=== PATIENT | female | born 1960 | race Caucasian/White ===

== ENCOUNTER 2017-04-20 11:00 | Day surgery (SDC) | payer OTHER ==
[2017-04-20] MEDS ORDERED: LIDOCAINE 1% 2 ML INJ ID PRN (11:13)
[2017-04-20] MEDS ORDERED: LR 1,000 ML IV ONE (11:13)
[2017-04-20] MEDS ORDERED: ceFAZolin 2 GM/SWFI 2 GM/20 ML SYR IVP ONE (11:32)
[2017-04-20 11:36] VITALS: PULSE 65; TEMP 97.7
[2017-04-20] MEDS ORDERED: BUPIVACAINE 0.5% 30 ML SDV ONE (12:20)
[2017-04-20] MEDS ORDERED: POLYMYXIN B SULFATE 500,000 UNIT/10 ML SYR IRR ONE (12:20)
[2017-04-20] MEDS ORDERED: BACITRACIN 50,000 UNITS/10 ML SYR IRR ONE (12:21)
--- NOTE | 2017-04-20 12:27 | PDHPUP ---
History & Physical Update H&P update statement: This history and physical update is based on an assessment of the patient which was completed after admission or registration (within 24 hours), but prior to the surgery/procedure. H&P update: H&P reviewed & patient examined, no change in patient's condition since H&P completed
[2017-04-20] MEDS ORDERED: PROPOFOL/EMULSION 500 MG/50 ML BOTTLE IV ONE (12:32)
[2017-04-20] MEDS ORDERED: fentaNYL 100 MCG/2 ML INJ ONE (12:32)
[2017-04-20] MEDS ORDERED: ALBUTEROL 3 ML DEYVIAL IH PRN (13:13)
[2017-04-20] MEDS ORDERED: NALOXONE HCL 0.4 MG/ML INJ IVP PRN (13:13)
[2017-04-20] MEDS ORDERED: DEXAMETHASONE 4 MG/ML VIAL IVP PRN (13:13)
[2017-04-20] MEDS ORDERED: fentaNYL 100 MCG/2 ML INJ IVP PRN (13:13)
[2017-04-20] MEDS ORDERED: PROMETHAZINE HCL 25 MG/ML INJ IVP PRN (13:13)
[2017-04-20] MEDS ORDERED: LR 500 ML IV PRN (13:13)
[2017-04-20] MEDS ORDERED: OXYCODONE/APAP 5/325 TAB PO PRN ×2 (13:13→13:52)
[2017-04-20] MEDS ORDERED: ONDANSETRON 4 MG/2 ML VIAL IVP PRN ×2 (13:13→13:52)
[2017-04-20] MEDS ORDERED: HYDROCODONE/APAP 5/325 TAB PO PRN (13:13)
[2017-04-20] MEDS ORDERED: ACETAMINOPHEN 500 MG TAB PO PRN (13:13)
--- NOTE | 2017-04-20 13:13 | PDANEPAE ---
ANE Past Medical History - Cardiovascular History Hx Hypertension: No Hx Arrhythmias: No Hx Chest Pain: No Hx Coronary Artery / Peripheral Vascular Disease: No Hx CHF / Valvular Disease: No Hx Palpitations: No - Pulmonary History Hx COPD: No Hx Asthma/Reactive Airway Disease: No Hx Recent Upper Respiratory Infection: No Hx Oxygen in Use at Home: No Hx Sleep Apnea: No Sleep Apnea Screening Result - Last Documented: Negative - Neurologic History Hx Cerebrovascular Accident: No Hx Seizures: No Hx Dementia: No Neurologic History Comment: OCCAS MIGRAINES - Endocrine History Hx Diabetes: No - Renal History Hx Renal Disorders: No - Liver History Hx Hepatic Disorders: No - Neurological & Psychiatric Hx Hx Neurological and Psychiatric Disorders: No Neurological / Psychiatric History Comment: EFFEXOR - ANXIETY - Cancer History Hx Cancer: No - Congenital Disorder History Hx Congenital Disorders: No - GI History Hx Gastrointestinal Disorders: No - Other Health History Other Health History: ECZEMA. SENSITIVE SKIN - Chronic Pain History Chronic Pain: No - Surgical History Prior Surgeries: NONE ANE Review of Systems Review of Systems: - Exercise capacity METS (RN): 5 METS ANE Patient History - Allergies Allergies/Adverse Reactions: latex Allergy (Verified 01/23/16 18:44) Sulfa (Sulfonamide Antibiotics) [Sulfa(Sulfonamide Antibiotics)] Allergy ( Verified 01/23/16 18:44) - Home Medications Home Medications: Aspirin [Aspir 81] 04/24/12 [Last Taken Unknown] Multivitamins [Multivitamin (OTC)] 04/24/12 [Last Taken Unknown] Harrison-3 Fatty Acids/Fish Oil [Harrison 3 Fish Oil Softgel] 1 each PO 04/24/12 [ Last Taken Unknown] Venlafaxine Xr [Effexor Xr 37.5MG (RX)] 04/24/12 [Last Taken Unknown] - NPO status NPO Since - Liquids (Date): 04/20/17 NPO Since - Liquids (Time): 09:00 NPO Since - Solids (Date): 04/20/17 NPO Since - Solids (Time): 04:00 - Smoking Hx Smoking Status: Light smoker - Family Anes Hx Family Hx Anesthesia Complications: NEG ANE Labs/Vital Signs - Vital Signs Blood Pressure: 116/68 Heart Rate: 65 Respiratory Rate: 18 O2 Sat (%): 95 Height: 167.64 cm Weight: 58.967 kg ANE Physical Exam - Airway Neck exam: FROM Mallampati Score: Class 1 Mouth exam: normal dental/mouth exam - Pulmonary Pulmonary: no respiratory distress, no rales or rhonchi, clear to auscultation - Cardiovascular Cardiovascular: regular rate and rhythym, no murmur, rub, or gallop - ASA Status ASA Status: II ANE Anesthesia Plan Anesthesia Plan: MAC
[2017-04-20] MEDS ORDERED: ONDANSETRON DISINTEGRATING 4 MG TAB PO PRN (13:52)
[2017-04-20 14:08] VITALS: RESP 16
[2017-04-20 14:22] VITALS: BP 125/70; O2SAT 98
--- NOTE | 2017-04-23 08:50 | GOP ---
[f rep st] OPERATIVE REPORT DATE OF OPERATION: 04/20/2017 SURGEON: Juaquin Bauer DPM COMPARATOR OPERATOR: None. ANESTHESIA: MAC with local 20 mL 0.5% Marcaine plain. PREOPERATIVE DIAGNOSIS: 1. Hallux valgus, right foot. 2. Metatarsus primus varus, right foot. 3. Congenital anomaly of toe, right foot. POSTOPERATIVE DIAGNOSIS: 1. Hallux valgus, right foot. 2. Metatarsus primus varus, right foot. 3. Congenital anomaly of toe, right foot. PROCEDURE PERFORMED: 1. Bunionectomy, right foot. 2. First metatarsal osteotomy with bone graft, right foot. 3. Osteotomy of proximal phalanx first digit, right foot. FINDINGS: Consistent with diagnoses. ESTIMATED BLOOD LOSS: Zero. DESCRIPTION OF PROCEDURE: After identification, patient brought into the operating room, placed on t he operating table in the supine position. Following IV sedation, local anesthesia was obtained arou nd the patient's right foot, utilizing a total of 20 mL 0.5% Marcaine plain. Pneumatic ankle tourniq uet was placed around the patient's right ankle with ample padding. The foot was then scrubbed, prep ped and draped in the usual aseptic manner. Esmarch bandage was utilized to exsanguinate the patient 's right foot and pneumatic ankle tourniquet was then inflated. Attention was directed to the medial aspect of the patient's right foot where a 5 cm linear longitudi nal incision was made medial to the 1st metatarsophalangeal joint. This incision was deepened throug h the subcutaneous tissues with care being taken to identify and retract all vital neural and vascula r structures. Bleeders ligated and cauterized as necessary. The incision was deepened through the s ubcutaneous tissue to the level of the capsule. A lenticular capsulorraphy was performed at the medi al aspect of the 1st metatarsophalangeal joint. This lenticular piece of capsule was excised in tota l and passed from the operative field. Capsular structures were reflected dorsally and plantarly, th us exposing the 1st metatarsophalangeal joint in the operative site. A McGlamry elevator was inserte d from medial to lateral between the plantar aspect of the 1st metatarsal head and the sesamoid appar atus to serve as a release of adhesions as well as a lateral soft tissue ligamentous release. Upon c ompletion of this release, the hallux was noted to be more translatable into a more medial and correc tim anatomic position. Attention was directed to the 1st metatarsal bone where a entlydk-jfa-eayrpzr Z-shaped scarf osteotom y was performed on the head, neck and shaft of the 1st metatarsal bone from medial to lateral. Upon completion of this umuiztl-ach-teyknhj osteotomy, the capital fragment was translated into a more lat eral and corrected position. Following temporary fixation, 2 x 2.5 headless Arthrex screws were driv en obliquely across the osteotomy site to serve as stable fixation. Redundant medial bone shelf was excised, remodeled, and reinserted into the osteotomy site to serve as a bone graft. All rough edges were then smoothed with a bone bur. At this time, the decision was made to perform an Bal 1st prox imal phalanx osteotomy, due to the abducted position of the hallux. Attention was directed to the me dial aspect of the 1st proximal phalanx right foot, where a medially based wedge osteotomy was perfor med. Upon completion of this osteotomy, the lateral cortex was left intact and the wedge was removed . This osteotomy site was closed and a 2.5 headless Arthrex screw was driven obliquely across the os teotomy site to serve as stable fixation. Upon closure of this osteotomy site, the hallux was transl ated into a more medial and corrected position on the 1st metatarsal. At this time, position of the hallux and 1st metatarsal were noted to be excellent and anatomic. The fixation was noted to be extr new stable. The incision site was then flushed with normal sterile saline solution. Capsular stru ctures were reapproximated utilizing 2-0 Vicryl, subcutaneous tissue reapproximated utilizing 3-0 Benito ryl, and skin reapproximated utilizing 5-0 Vicryl in a running subcuticular suture technique. Incisi on site was then dressed with Steri-Strips, Adaptic, 4 x 4 gauze, Webril, Genaro, Hayes bandage. Larisa pereira was transported to the postoperative recovery room with vital signs stable and vascular status inta ct to the right foot. Patient tolerated the procedure and anesthesia well. HEMOSTASIS: Right pneumatic ankle tourniquet inflated to 250 mmHg for 35 minutes. MATERIALS: 2.5 headless Arthrex screw x3. INJECTABLES: None. CONDITION: Stable. /[id number]/MODL
== END 2017-04-20 14:25 | disposition home or self-care (01) ==
LOC: FSGY 11:00
PROVIDERS: ATTEND Podiatrist
DX: M21.611 Bunion of right foot (principal); M20.12 Hallux valgus (acquired), left foot; M20.11 Hallux valgus (acquired), right foot; F41.8 Other specified anxiety disorders; F17.210 Nicotine dependence, cigarettes, uncomplicated; Z91.040 Latex allergy status
CPT/HCPCS: C1713; J0690; J2704; J3010